=== PATIENT | female | born 1935 | race Caucasian/White ===

== ENCOUNTER 2016-09-07 07:58 | Inpatient (IN) | payer OTHER ==
[~2016-09-07] VITALS: Ht 154.9 cm; Wt 60.0 kg
[~2016-09-07 07:58] MED LIST: ACCUPRIL5 MG PO; MULTIPLE VITAMIN PO; OMEPRAZOLE20 M1 PO; PROBIOTI1 PO; SIMVASTATIN40 MG PO; SYNTHROID50 MCG PO
--- NOTE | 2016-09-07 10:25 | DIAGNOSTIC IMAGING REPORT ---
PROCEDURE: ABDOMEN/PELVIS WITH CONTRAST CLINICAL INDICATION: ABDOMINAL PAIN, BLOODY DIARRHEA. TECHNIQUE: 100 ml of Isovue 300 were injected intravenously and axial images were obtained of the abdomen and pelvis with sagittal and coronal reformations. COMPARISON: 02/25/2015 FINDINGS: ABDOMEN: Coarse interstitial markings throughout the lung bases. Mild bibasilar atelectasis. Moderate aortic and mitral valvular calcification. Mild left chamber cardiac enlargement. Circumferential distal esophageal thickening and edema of the GE junction. The liver, gallbladder, adrenal glands, kidneys (14 mm superior pole left exophytic cyst). pancreas and spleen are normal. The abdominal aorta is normal in its course and caliber. There is heavy calcific atherosclerosis, however the KIM does appear perfused. There are no suspicious calcifications, retroperitoneal adenopathy or masses. The stomach, upper bowel loops, and mesentery are normal. Intact anterior abdominal wall. No free fluid or inflammation. Moderate sigmoid diverticulosis without acute inflammation. Mild descending diverticular disease. The colon beginning at the distal transverse through the proximal descending demonstrates circumferential mural wall thickening, edema, and mild mucosal hyperemia. Trace pericolonic inflammation around the distal transverse colon in the left upper quadrant/left mid abdomen. PELVIS: The appendix was not seen. The pelvic small bowel loops are normal. The uterus and ovaries are surgically absent. The urinary bladder, and pelvic vessels are normal. No adenopathy, free fluid, or pelvic mass. Intact osseous structures. IMPRESSION: 1. Changes of acute colitis involving the distal transverse colon, splenic flexure, and into the proximal descending colon. Findings are likely infectious/inflammatory although ischemic colitis, given location and presence of heavy atherosclerosis, is not excluded. 2. Mild to moderate descending and sigmoid diverticulosis without acute diverticulitis. 3. Circumferential distal esophageal thickening and wall edema, probably esophagitis, less likely neoplasm given smooth appearance. 4. Status post hysterectomy and oophorectomy. 5. Findings discussed with Dr. Ríos in the emergency room. All CT scans at this facility use dose modulation, iterative reconstruction, and/or weight-based dosing when appropriate to reduce radiation dose to as low as reasonably achievable.
--- NOTE | 2016-09-07 10:30 | ED ORDER SUMMARY ---
..... Patient: MARIE CERNA OrderSheet [facility] VisitID: [id number] [place] [address] 81y, F Registration Date/Time: 09/07/2016 ORDER SHEET Weight: 58.9 kg (stated) Allergies: No Known Drug Allergy GENERAL ORDERS: CT Abd/Pel w Cont (No) (N/A) Urgent (08:09/07/2016 Martha Manuel) (Ack 8:24 Shweta) (9:19 LWhalen R.N.) CBC w Diff Urgent (:09/07/2016 Martha Manuel) (Ack 8:23 Shweta) (8:36 LWhalen R.N.) CMP Urgent (:09/07/2016 Martha Manuel) (Ack 8:23 Shweta) (8:36 LWhalen R.N.) UA-Culture if indicated Urgent (:09/07/2016 Martha Manuel) (Ack 8:24 Shweta) (9:19 LWhalen R.N.) PT with INR Urgent (:09/07/2016 Martha Manuel) (Ack 8:24 Shweta) (8:36 LWhalen R.N.) PTT Urgent (:09/07/2016 Martha Manuel) (Ack 8:24 Shweta) (8:36 LWhalen R.N.) Type & Screen Urgent (:09/07/2016 Martha Manuel) (Ack 8:24 Shweta) (8:36 LWhalen R.N.) Pulse oximeter (:09/07/2016 Martha Manuel) (Ack 8:23 Shweta) (8:36 LWhalen R.N.) Blood Culture (No) (N/A) Urgent (:09/07/2016 Martha Manuel) (Ack 10:34 Shweta) (10:57 LWhalen R.N.) MEDICATION ORDERS: IV FLUIDS: IV NS : initial bolus 1000 mL (1000 mL/hr), then none - for X1 (NOW) (08:09/07/2016 Martha Manuel) (9:17 LWjosé miguel R.N.) Zofran IV 4 mg (NOW) (08:09/07/2016 Martha Manuel) (9:18 LWjosé miguel R.N.) Morphine IV 4 mg (HIGH ALERT MEDICATION, NOW) (08:09/07/2016 Martha Manuel) (9:19 LWjosé miguel R.N.) Flagyl IV 500 mg/100mL (NOW) (10:18 09/07/2016 Martha Manuel) (10:57 LWhalannie R.N.) Levaquin IV 750 mg/150 mL (NOW) (10:19 09/07/2016 Martha Manuel) (10:57 LWjosé miguel R.N.) ORDER SHEET NOTES: [Electronically signed by Zeenat Knapp R.N. (19:32 09/07/2016)] [Electronically signed by Marvel Ríos Dr. (03:51 09/12/2016)] [Electronically locked/signed by Zeenat Knapp R.N. (19:32 09/07/2016)]
--- NOTE | 2016-09-07 10:30 | ED ORDER SUMMARY ---
..... Patient: MARIE CERNA OrderSheet [facility] VisitID: [id number] [place] [address] 81y, F Registration Date/Time: 09/07/2016 ORDER SHEET Weight: 58.9 kg (stated) Allergies: No Known Drug Allergy GENERAL ORDERS: CT Abd/Pel w Cont (No) (N/A) Urgent (08:09/07/2016 Martha Manuel) (Ack 8:24 Shweta) (9:19 LWhalen R.N.) CBC w Diff Urgent (:09/07/2016 Martha Manuel) (Ack 8:23 Shweta) (8:36 LWhalen R.N.) CMP Urgent (:09/07/2016 Martha Manuel) (Ack 8:23 Shweta) (8:36 LWhalen R.N.) UA-Culture if indicated Urgent (:09/07/2016 Martha Manuel) (Ack 8:24 Shweta) (9:19 LWhalen R.N.) PT with INR Urgent (:09/07/2016 Martha Manuel) (Ack 8:24 Shweta) (8:36 LWhalen R.N.) PTT Urgent (:09/07/2016 Martha Manuel) (Ack 8:24 Shweta) (8:36 LWhalen R.N.) Type & Screen Urgent (:09/07/2016 Martha Manuel) (Ack 8:24 Shweta) (8:36 LWhalen R.N.) Pulse oximeter (:09/07/2016 Martha Manuel) (Ack 8:23 Shweta) (8:36 LWhalen R.N.) Blood Culture (No) (N/A) Urgent (:09/07/2016 Martha Manuel) (Ack 10:34 Shweta) (10:57 LWhalen R.N.) MEDICATION ORDERS: IV FLUIDS: IV NS : initial bolus 1000 mL (1000 mL/hr), then none - for X1 (NOW) (08:09/07/2016 Martha Manuel) (9:17 LWjosé miguel R.N.) Zofran IV 4 mg (NOW) (08:09/07/2016 Martha Manuel) (9:18 LWjosé miguel R.N.) Morphine IV 4 mg (HIGH ALERT MEDICATION, NOW) (08:09/07/2016 Martha Manuel) (9:19 LWjosé miguel R.N.) Flagyl IV 500 mg/100mL (NOW) (10:18 09/07/2016 Martha Manuel) (10:57 LWhalannie R.N.) Levaquin IV 750 mg/150 mL (NOW) (10:19 09/07/2016 Martha Manuel) (10:57 LWjosé miguel R.N.) ORDER SHEET NOTES: [Electronically signed by Zeenat Knapp R.N. (19:32 09/07/2016)] [Electronically signed by Marvel Ríos Dr. (03:51 09/12/2016)] [Electronically locked/signed by Zeenat Knapp R.N. (19:32 09/07/2016)]
--- NOTE | 2016-09-07 10:30 | ED NURSING NOTES ---
Clinical Report - Nurses Merged With [facility] [address] [place] [address] 09/07/2016 7:59 [id number] Triage time 08:Sep 07 2016. Acuity: LEVEL 3. Chief Complaint: ABDOMINAL PAIN and DIARRHEA. JANEEN COMA SCORE: Janeen Coma Scale: 15- eyes open spontaneously (4); best verbal response- oriented x 4 (5); best motor response- obeys commands (6). --08:20 Zeenat Knapp R.N. 08:08 09/07/16. BP: 133/51. HR: 86. RR: 18. O2 saturation: 99%. Temp: 98.6 F. Pain level now 5/10. --08:20 Zeenat Knapp R.N. Weight: 58.9 kg stated. Height/Length: 61 inches Per Patient. BMI: 24.5. --08:19 Zeenat Knapp R.N. Medications Levothyroxine Sodium Oral (Tablet 50 mcg), 2x a day. Multivitamins Oral 1 pill, daily. Quinapril HCl Oral 5 mg, 2x a day. Simvastatin Oral 40 mg, daily. --08:12 Zeenat Knapp R.N. Aspirin Low Strength Oral. --08:12 Zeenat Knapp R.N. AmLODIPine Besylate Oral. --08:13 Zeenat Knapp R.N. B 12. --08:13 Zeenat Knapp R.N. Allergies No Known Drug Allergy. --08:12 Zeenat Knapp R.N. History Arrived by private vehicle. Historian: patient. This started last night. ( Was working last night had to go home for abdominal pain and had diarrhea. When she woke up this am has had clots and some blood. Was hospitalized before for a GI bleed.). She has had nausea, diarrhea and abdominal pain. PAST MEDICAL HX: Immunizations: up-to-date. SOCIAL HX: No infectious disease exposure. SELF HARM ASSESSMENT: A self harm assessment was performed. The patient answered "no" to the question "Have you recently felt down, depressed, or hopeless?" and "Do you have thoughts of harming or killing yourself?". FALL RISK ASSESSMENT: Fall risk assessment completed. No fall risk identified. NUTRITIONAL RISK ASSESSMENT: The nutritional risk assessment revealed no deficiencies. FUNCTIONAL ASSESSMENT: Functional assessment: no impairments noted. LEARNING NEEDS ASSESSMENT: The learning needs assessment revealed no barriers. ABUSE ASSESSMENT: Abuse assessment: (yes) The patient was asked "Do you feel safe in your home?". SKIN INTEGRITY ASSESSMENT: Skin integrity risk assessment completed. No skin integrity risk identified. --08:20 Zeenat Knapp R.N. PROBLEMS: Headache. Laceration. Hypertension. Esophagitis. Thyroid Disease. Hyperlipidemia. Bacterial Enteritis. Diverticulitis. GI Bleeding. Bronchitis. Heart Disease. Immunizations. --08:13 Zeenat Knapp R.N. ADDITIONAL SURGERIES: Hysterectomy. Oophorectomy. Shoulder Surgery. --08:13 Zeenat Knapp R.N. Interventions ID band on patient. --08:20 Zeenat Knapp R.N. PHYSICAL ASSESSMENT Ambulatory to room. GENERAL / NEURO / PSYCH: Alert. Oriented X 4. Appears anxious. HEENT: Mucous membranes are pink. RESPIRATORY: Respirations not labored. Breath sounds within normal limits. CVS: Normal sinus rhythm noted. Capillary refill less than 2 seconds. GI / : The patient has had nausea and diarrhea. Abdomen soft. Blood present in the stool. SKIN: Skin is warm and dry. --08:21 Zeenat Knapp R.N. NURSING PROGRESS NOTES The initial plan of care for this patient includes an assessment with efforts to address patient positioning, appropriate ambient lighting and comfortable environmental temperature. Pulse oximeter and NIBP monitor placed on patient. Reassurance given. Call light placed in reach. Side rails up x 1. Bed placed in lowest position. Brakes of bed on. --08:21 Zeenat Knapp R.N. 08:15 09/07/2016 Site #1 started via IV in the left antecubital space with an 20g angiocath; one attempt. Blood drawn: rainbow set. Labeled in the presence of the patient and sent to the lab. Saline lock flushed with 10 mL saline. --08:25 Kit Olivera R.N. 08:52 09/07/2016 Started bag #1 1000 mL IV Fluids IV NS (Saline); at 1000 mL/hr over 1 hour(s) via site #1 via dial-a-flow. Allergies verified and confirmed 5 rights. IV patency established. IV site checked: no pain, redness, or swelling. IV flushed thoroughly pre- and post-medication administration. --09:17 Zeenat Knapp R.N. 09:18 09/07/2016 Zofran (Ondansetron HCl) IVP 4 mg given over 2 minute(s) via site #1. Allergies verified and confirmed 5 rights. IV patency established. IV site checked: no pain, redness, or swelling. IV flushed thoroughly pre- and post-medication administration. --09:18 Zeenat Knapp R.N. 09:19 09/07/2016 Morphine IVP 4 mg given over 2 minute(s) via site #1. Allergies verified, confirmed 5 rights and sedative warning given to the patient. IV patency established. IV site checked: no pain, redness, or swelling. IV flushed thoroughly pre- and post-medication administration. --09:19 Zeenat Knapp R.N. ( H&P form given to patient to fill out.). --10:46 Erika Cruz 10:57 09/07/2016 Started 500 mg of Flagyl (MetroNIDAZOLE in NaCl) IVPB in bag #1 100 mL; at 100 mL/hr over 1 hour(s) via site #1 via IV pump. Allergies verified and confirmed 5 rights. IV patency established. IV site checked: no pain, redness, or swelling. IV flushed thoroughly pre- and post-medication administration. --10:57 Zeenat Knapp R.N. 10:57 09/07/2016 Started 750 mg of Levaquin (Levofloxacin) IVPB in bag #1 150 mL; at 150 mL/hr over 1 hour(s) via site #1 via IV pump. Allergies verified and confirmed 5 rights. IV patency established. IV site checked: no pain, redness, or swelling. IV flushed thoroughly pre- and post-medication administration. --10:57 Zeenat Knapp R.N. 09:30 09/07/16. BP: 120/44. HR: 72. RR: 18. O2 saturation: 97%. 09:00 09/07/16. BP: 118/43. HR: 70. RR: 20. O2 saturation: 99%. 08:45 09/07/16. BP: 123/47. HR: 72. RR: 19. O2 saturation: 98%. 08:30 09/07/16. BP: 60/29. HR: 70. RR: 14. O2 saturation: 96%. 08:15 09/07/16. BP: 56/29. HR: 72. RR: 18. O2 saturation: 96%. --11:21 Zeenat Knapp R.N. ( Patient's right arm BP decreased patient states that she has had a blockage and not to use that are. Changed BP cuff site and patient's bp wnl.). --11:24 Zeenat Knapp R.N. DISPOSITION / DISCHARGE 11:23 09/07/16. BP: 118/44. HR: 73. RR: 19. O2 saturation: 98%. Temp: 98.6 F. --11:23 Zeenat Knapp R.N. Admitted to the Critical Care Unit (305). --11:24 Zeenat Knapp R.N. ( Report given to Parisa CASTRO). --11:24 Zeenat Knapp R.N. Departure time: 11:42 Sep 07 2016. --11:42 Zeenat Knapp R.N. Locked/Released at 09/07/2016 19:32 by Zeenat Knapp R.N.
--- NOTE | 2016-09-07 10:30 | ED CLINICAL REPORT ---
Clinical Report - Physicians/Mid Levels [facility] [address] [place] [address] 09/07/2016 7:59 Patient: MARIE CERNA Time Seen: 0815. Arrived- By private vehicle. Historian- patient. HISTORY OF PRESENT ILLNESS Chief Complaint: RECTAL BLEEDING. This started yesterday, has been moderate and is still present. It was abrupt in onset and has been intermittent but is not gone now. The patient has had dark stools and rectal bleeding. She has had moderate abdominal pain. The pain is described as located in the central area of the abdomen and associated with nausea. No vomiting. (hx of diverticulosis.). No recent travel. No known contact with a sick individual. Similar symptoms previously: Once. Recent medical care: Not recently seen/assessed. REVIEW OF SYSTEMS No skin rash. All systems otherwise negative, except as recorded above. PAST HISTORY See nurses notes. Medications: B 12. AmLODIPine Besylate Oral. Aspirin Low Strength Oral. Levothyroxine Sodium Oral (Tablet 50 mcg), 2x a day. Multivitamins Oral 1 pill, daily. Quinapril HCl Oral 5 mg, 2x a day. Simvastatin Oral 40 mg, daily. Allergies: No Known Drug Allergy. SOCIAL HISTORY Never smoker. Alcohol use. No drug use. No recent travel. Is a local resident. ADDITIONAL NOTES The nursing notes have been reviewed. PHYSICAL EXAM Vital Signs: 09/07/2016 08:08 BP: 133/51. HR: 86. RR: 18. O2 saturation: 99%. Temp: 98.6 F. Blood pressure normal. Oxygen saturation normal. Appearance: Alert. Oriented X3. No acute distress. Eyes: Pupils equal, round and reactive to light. Eyes normal inspection. ENT: Ears normal. Nose normal. Pharynx normal. Neck: Normal inspection. Neck supple. CVS: Normal heart rate and rhythm. Heart sounds normal. Pulses normal. Respiratory: No respiratory distress. Breath sounds normal. Abdomen: Soft and nontender. Bowel sounds normal. No mass. Rectal: Strongly heme-positive stool; blood present in the stool; stools are dark and maroon colored; hemoccult quality project manager check passed. (POC test reference range: negative). Skin: Skin warm and dry. Normal skin color. No rash. Normal skin turgor. Extremities: Extremities exhibit normal ROM. No lower extremity edema. LABS, X-RAYS, AND EKG CT Abdomen - Pelvis: PROCEDURE: ABDOMEN/PELVIS WITH CONTRAST CLINICAL INDICATION: ABDOMINAL PAIN, BLOODY DIARRHEA. TECHNIQUE: 100 ml of Isovue 300 were injected intravenously and axial images were obtained of the abdomen and pelvis with sagittal and coronal reformations. COMPARISON: 02/25/2015 FINDINGS: ABDOMEN: Coarse interstitial markings throughout the lung bases. Mild bibasilar atelectasis. Moderate aortic and mitral valvular calcification. Mild left chamber cardiac enlargement. Circumferential distal esophageal thickening and edema of the GE junction. The liver, gallbladder, adrenal glands, kidneys (14 mm superior pole left exophytic cyst). pancreas and spleen are normal. The abdominal aorta is normal in its course and caliber. There is heavy calcific atherosclerosis, however the KIM does appear perfused. There are no suspicious calcifications, retroperitoneal adenopathy or masses. The stomach, upper bowel loops, and mesentery are normal. Intact anterior abdominal wall. No free fluid or inflammation. Moderate sigmoid diverticulosis without acute inflammation. Mild descending diverticular disease. The colon beginning at the distal transverse through the proximal descending demonstrates circumferential mural wall thickening, edema, and mild mucosal hyperemia. Trace pericolonic inflammation around the distal transverse colon in the left upper quadrant/left mid abdomen. PELVIS: The appendix was not seen. The pelvic small bowel loops are normal. The uterus and ovaries are surgically absent. The urinary bladder, and pelvic vessels are normal. No adenopathy, free fluid, or pelvic mass. Intact osseous structures. IMPRESSION: 1. Changes of acute colitis involving the distal transverse colon, splenic flexure, and into the proximal descending colon. Findings are likely infectious/inflammatory although ischemic colitis, given location and presence of heavy atherosclerosis, is not excluded. 2. Mild to moderate descending and sigmoid diverticulosis without acute diverticulitis. 3. Circumferential distal esophageal thickening and wall edema, probably esophagitis, less likely neoplasm given smooth appearance. 4. Status post hysterectomy and oophorectomy. Abdomen - pelvic CT performed with IV contrast. The study was independently viewed by me and interpreted by the radiologist. The study was discussed with the radiologist (via pacs and phone). Laboratory Tests: CBC w Diff: (RAHUL: 09/07/2016 08:18) ( [facility] 09/07[facility] 08:34) Final results Test Result Flag Units (Reference) WHITE BLOOD COUNT 20.3 H K/uL (4.5-11.5) RED BLOOD COUNT 3.66 L M/uL (4.00-5.20) HEMOGLOBIN 11.1 L gm/dL (12.0-16.0) HEMATOCRIT 33.1 L % (36.0-46.0) MEAN CELL VOLUME 90 fL (80-100) MEAN CORPUSCULAR HGB 30 pg (26-34) MEAN CORPUSCULAR HGB CONC 34 g/dL (31-37) RED CELL DISTRIBUTION WIDTH 15.0 H % (11.6-14.8) PLATELET COUNT 194 K/uL (150-400) NEUTROPHIL % 90.8 H % (50-75) LYMPH % 4.4 L % (25-40) MONO % 4.4 % (3-14) EOSINOPHIL % 0.3 % (0-4) BASOPHIL % 0.1 % (0-2) PT with INR: (RAHUL: 09/07/2016 08:18) ( [facility] 09/07/2016 08:39) Final results Test Result Flag Units (Reference) INR 1.1 (0.8-1.2) Low Intensity Therapy: INR 1.5-2.0 PT range 18.5-23.1Mod.Intensity Therapy: INR 2.0-3.0 PT range 23.1-31.5High Intensity Therapy: INR 2.5-3.5 PT range 27.4-35.5High Intensity Therapy 2: INR 3.0-4.0 PT range 31.5-39.3 APTT 33 SECONDS (24-34) CMP: (RAHUL: 09/07/2016 08:18) ( [facility] 09/07/2016 08:57) Final results Test Result Flag Units (Reference) GLUCOSE 143 H mg/dL (70-110) BUN 18 mg/dL (7-18) CREATININE 0.9 mg/dL (0.6-1.3) Estimated GFR >60 mL/min Estimated GFR- >60 mL/min Note: Persistent reduction over 3 months in eGFR<60 mL/min/1.73 m2 defines CKD. Patients with eGFR values>=60 mL/min/1.73 m2 may also have CKD if evidence ofpersistent proteinuria. Additional information may be foundat www.kidney.org. SODIUM 142 mmol/L (136-145) POTASSIUM 4.4 mmol/L (3.5-5.1) CHLORIDE 107 mmol/L (98-107) CARBON DIOXIDE 21 mmol/L (21-32) CALCIUM 9.6 mg/dL (8.5-10.1) TOTAL PROTEIN 7.5 g/dL (6.4-8.2) ALBUMIN 4.0 g/dL (3.3-5.0) BILIRUBIN, TOTAL 0.4 mg/dL (0.0-1.0) ALKALINE PHOSPHATASE 61 U/L (46-116) AST (SGOT) 16 U/L (15-37) ALT (SGPT) 21 U/L (12-78) Type & Screen: (RAHUL: 09/07/2016 08:18) ( MsgRcvd 09/07/2016 09:23) Final results Test Result Flag Units (Reference) PATIENT BLOOD TYPE O Negative ANTIBODY SCREEN NEGATIVE . PROGRESS AND PROCEDURES Course of Care: the patient is a pleasant 81-year-old female presenting for evaluation of abdominal pain andrectal bleeding. At this time differential diagnosis includes C. difficile other infectious colitis, diverticulosis, hemorrhoids, or dysentery. Laboratory studies will be ordered. Patient appears nontoxic. Pain medications have also been ordered. Patient is agreeable to treatment plan. All questions have been answered. The patient's workup was remarkable for the findings above. Patient's white blood cell count is noted to be20.3. Patient is also noted to be 81 years old and with the CT scan findings above, would feel the patient is a poor outpatient candidate. Patient would be athigh risk for acute decompensation if patient were to be Sent home. Antibiotics have been provided here in the emergency department. I discussion with the patient in regards to her workup here in the emergency department including diagnosis and plan of care. Patient is agreeable to the treatment and plan. Discussed the case with the hospitalist. Patient will be admitted. No further recommendations made. Patient to be admitted to the observation unit. Do not fill patient is admitted to the ICU. stable for floor placement. Patient without signs of sepsis. Prior to patient's departure from the emergency department she was noted to be resting in bed and in no acute distress. Patient's Condition improved. Patient still will need to be admitted for further monitoring and management of her abdominal pain and colitis. Disposition: Observation in Acute Care. CLINICAL IMPRESSION colitis, acute leukocytosis, acute abdominal pain, acute gI bleed, acute. (Electronically signed by Marvel Ríos Dr. 09/12/2016 3:51)
[2016-09-07 12:07] VITALS: BP 123/44
[2016-09-07 14:26] VITALS: BP 117/42
--- NOTE | 2016-09-07 18:03 | History & Physical Report ---
History Chief Complaint abdominal pain and maroon stools History of Present Illness Patient is an 81 year old female with a pmh of hypertension and hypothryoidism that is presenting with a one day history of abdominal cramps and melena. Patient had been in her usual state of health when she developed lower abdominal cramps. Patient didnt think much of it, then she started to develop diarrhea and she noticed that eventually over time the diarrhea had become marroon in color. Patient had approximately 5 episodes, all associated with severe cramping. Patient became concerned that this was somehting more significant and decided to come to the hospital. Patient History 1. Abdominal pain 2. Leukocytosis, unspecified 3. Colitis 4. Diverticula of colon 5. Hypertension Social History Patient does not drink or smoke. She is an ex smoker with a 20 pack year history she quit over 20 years ago. Patient using medical marijuana salve on her joints. She currently lives with her daughter and manages all her ADLs indepentely. Family History MOTHER, , Age 82; Cause: Cardiac abnormality. Heart Disease FATHER, , Age 62; Cause: Liver disease. FHx: liver disease Heart Disease BROTHER, ; Cause: Leukemia. FHx: leukemia SISTER, ; Cause: Cancer of unknown origin. FHx: cancer Medications and Allergies Medications Home Medications Amlodopine 10 mg daily Aspirin 325 mg daily levothyroxine 50 mcg daily Quinapril 20 mg daily Simvastatin 40 mg daily Current Medications Sig/Vero Start time Last Medication Dose Route Stop Time Status Admin Levofloxacin/Dextrose 150 ML Q48H 09/09 0900 AC IV Metronidazole 500 MG Q8H 09/07 1800 AC 09/07 PO 1758 Lactobacillus 1 TAB TID 09/07 1530 AC 09/07 PO 1701 Ondansetron HCl 4 MG Q6H PRN 09/07 1400 AC IV Pantoprazole Sodium 40 MG DAILY@0600 09/07 1400 AC 09/07 IV 1418 Sodium Chloride 1,000 ML ASDIRECTED 09/07 1400 AC IV Morphine Sulfate 1 MG Q6H PRN 09/07 1315 AC 09/07 IV 1644 Allergies Coded Allergies: TAPE - PLASTIC (Severe, Rash 09/07/16) Paper tape is okay Review of Systems Constitutional Weakness, Malaise. Denies: Fever, Chills, Sweats, Other. Eyes Denies: Pain, Vision Change, Conjunctival Inflammation, Eyelid Inflammation, Redness, Other. ENT Denies: Ear Pain, Ear Discharge, Nose Pain, Nasal Discharge, Nasal Congestion, Mouth Pain, Mouth Swelling, Throat Pain, Throat Swelling, Other. Respiratory Denies: Cough, Dry, SOB w/exertion, Wheezing, Hemoptysis, Pleuritic Pain, Sputum , Other. Cardiovascular Denies: Chest Pain, Palpitations, Orthopnea, PND, Edema, Light-headedness, Other. Gastrointestinal Abdominal Pain, Diarrhea, Melena. Denies: Nausea, Vomiting, Constipation, Hematochezia, Other. Genitourinary Denies: Dysuria, Frequency, Incontinence, Hematuria, Retention, Other. Musculoskeletal Denies: Neck Pain, Shoulder Pain, Arm Pain, Back Pain, Hand Pain, Leg Pain, Foot Pain, Other. Skin Denies: Rash, Lesions, Jaundice, Bruising, Other. Neurological Denies: Weakness, Numbness, Incoordination, Change in speech, Confusion, Seizures, Other. Physical Exam Vital Signs / I&Os Vital Signs Date Time Temp Pulse Resp B/P Pulse O2 O2 Flow FiO2 Ox Delivery Rate 09/07 1833 99.0 81 16 141/49 96 09/07 1426 98.2 72 16 117/42 100 09/07 1207 99.3 72 21 123/44 98 Room Air General Appearance Alert, Oriented X3, No acute distress HEENT Atraumatic Lungs Clear to auscultation, Normal air movement Neck No JVD, No masses Cardiovascular Regular rate and rhythm, Normal S1 and S2, No murmurs, gallops, rubs Abdomen Soft, No tenderness Extremities No edema, Normal pulses, No tenderness, Strength = upper ext's, Strength = lower ext's Skin No Breakdown, No Significant Lesions Neurological Normal gait, Normal tone, Sensation intact, Cranial nerves intact, No lateralizing signs Psych/Mental Status Mood normal LAB Results Laboratory Tests 09/07 09/07 0818 1045 Chemistry Plasma Sodium (136 - 145 mmol/L) 142 Plasma Potassium (3.5 - 5.1 mmol/L) 4.4 Plasma Chloride (98 - 107 mmol/L) 107 CO2 (Enzymatic) (21 - 32 mmol/L) 21 BUN (7 - 18 mg/dL) 18 Creatinine (0.6 - 1.3 mg/dL) 0.9 Est GFR ( Amer) (mL/min) >60 Est GFR (Non-Af Amer) (mL/min) >60 Glucose (70 - 110 mg/dL) 143 Plasma Calcium (8.5 - 10.1 mg/dL) 9.6 Total Bilirubin (0.0 - 1.0 mg/dL) 0.4 AST (15 - 37 U/L) 16 ALT (12 - 78 U/L) 21 Alkaline Phosphatase (46 - 116 U/L) 61 Total Protein (6.4 - 8.2 g/dL) 7.5 Albumin (3.3 - 5.0 g/dL) 4.0 Coagulation INR (0.8 - 1.2) 1.1 APTT (24 - 34 SECONDS) 33 Hematology WBC (4.5 - 11.5 K/uL) 20.3 RBC (4.00 - 5.20 M/uL) 3.66 Hgb (12.0 - 16.0 gm/dL) 11.1 Hct (36.0 - 46.0 %) 33.1 MCV (80 - 100 fL) 90 MCH (26 - 34 pg) 30 RDW (11.6 - 14.8 %) 15.0 Neut % (Auto) (50 - 75 %) 90.8 Lymph % (Auto) (25 - 40 %) 4.4 [place] % (Auto) (3 - 14 %) 4.4 Eos % (Auto) (0 - 4 %) 0.3 Baso % (Auto) (0 - 2 %) 0.1 Plt Count, EDTA (150 - 400 K/uL) 194 PUBS MCHC (31 - 37 g/dL) 34 Urines Urine Color YELLOW Urine Appearance CLOUDY Urine pH (5.0 - 8.0) 5.5 Ur Specific [place] (1.010 - 1.030) <= 1.005 Urine Protein (NEGATIVE) NEGATIVE Urine Ketones (NEGATIVE) NEGATIVE Urine Blood (NEGATIVE) 2+ Urine Nitrite (NEGATIVE) POSITIVE Urine Bilirubin (NEGATIVE) NEGATIVE Urine Urobilinogen (0.2 - 1.0 EU/dL) 0.2 Ur Leukocyte Esterase (NEGATIVE) POSITIVE Urine RBC (0 - 1 rbc/hpf) 5-10 Urine WBC (0 - 1 wbc/hpf) 75-100 Ur Epithelial Cells (0 - 5 EPI/hpf) 0-1 Urine Bacteria (NONE SEEN) MODERATE (2+ TO 3+) Urine Glucose (NEGATIVE) NEGATIVE Urine Comment CULTURE INDICATED Microbiology Date/Time Procedure - Status Source Growth 09/07 1045 Urine Culture - RECD URINE CC 09/07 1035 Blood Culture - RECD BLOOD 09/07 1024 Blood Culture - CAN BLOOD Cancelled: ONLY ONE SET COLLECTED PER RN JOSR ER.ANTIBIOTICS ALREADY 09/07 UNK MRSA Screen - COLB NASAL Assessment and Plan Problem List 1. Abdominal pain Plan - radiolgical evidence of colitis - will treat with levaquin and flagyl - will monitor for improvement - will trend cbc 2. Leukocytosis, unspecified Plan - secondary to colitis - will continue to trend cbc daily 3. Hypertension Plan - will continue with home medication - will continue to trend blood pressure 4. Hypothyroid Plan - will continue with bid synthroid 50 mcg
[2016-09-07 18:33] VITALS: BP 141/49
[2016-09-07 22:49] VITALS: BP 130/42
[2016-09-08 02:07] VITALS: BP 129/39
[2016-09-08 07:24] VITALS: BP 127/49
[2016-09-08 10:42] VITALS: BP 122/45
[2016-09-08 14:38] VITALS: BP 116/42
[2016-09-08 18:12] VITALS: BP 113/42
--- NOTE | 2016-09-08 18:55 | Progress Note ---
Subjective General Pt seen and examined. Patient has improved abdominal pain and no episodes of diarrhea or melena. Patient able to tolerate a full diet. Constitutional Denies: Fever, Chills, Sweats, Weakness, Malaise, Other. Eyes Denies: Pain, Vision Change, Conjunctival Inflammation, Eyelid Inflammation, Redness, Other. ENT Denies: Ear Pain, Ear Discharge, Nose Pain, Nasal Discharge, Nasal Congestion, Mouth Pain, Mouth Swelling, Throat Pain, Throat Swelling, Other. Respiratory Denies: Cough, Dry, SOB w/exertion, Wheezing, Hemoptysis, Pleuritic Pain, Sputum , Other. Cardiovascular Denies: Chest Pain, Palpitations, Orthopnea, PND, Edema, Light-headedness, Other. Gastrointestinal Abdominal Pain. Denies: Nausea, Vomiting, Diarrhea, Constipation, Melena, Hematochezia, Other. Genitourinary Denies: Dysuria, Frequency, Incontinence, Hematuria, Retention, Other. Musculoskeletal Denies: Neck Pain, Shoulder Pain, Arm Pain, Back Pain, Hand Pain, Leg Pain, Foot Pain, Other. Skin Denies: Rash, Lesions, Jaundice, Bruising, Other. Neurological Denies: Weakness, Numbness, Incoordination, Change in speech, Confusion, Seizures, Other. Physical Exam Vital Signs / I&Os Vital Signs Date Time Temp Pulse Resp B/P Pulse O2 O2 Flow FiO2 Ox Delivery Rate 09/08 1812 98.8 73 20 113/42 100 Room Air 09/08 1438 98.1 71 20 116/42 100 Room Air 09/08 1042 98.8 72 20 122/45 99 Room Air 09/08 0724 99.0 72 19 127/49 96 Room Air 09/08 0207 99.3 76 16 129/39 100 Room Air 09/07 2355 Room Air 09/07 2249 99.3 81 16 130/42 100 Room Air I&O 09/07 0800 / 1600 09/08 0000 Intake Total 1000 Output Total 300 650 Balance 700 -650 General Appearance Alert, Oriented X3, No acute distress HEENT Atraumatic, PERRLA, Moist mucous membranes Lungs Clear to auscultation, Normal air movement Cardiovascular Regular rate and rhythm, Normal S1 and S2, No murmurs, gallops, rubs Abdomen Soft, No tenderness Extremities No edema, Normal pulses, No tenderness, Strength = upper ext's, Strength = lower ext's Skin No Breakdown, No Significant Lesions Neurological Normal speech, Sensation intact, Cranial nerves intact, No lateralizing signs Psych/Mental Status Mood normal LAB Results Laboratory Tests 09/08 520 Chemistry Plasma Sodium (136 - 145 mmol/L) 140 Plasma Potassium (3.5 - 5.1 mmol/L) 3.8 Plasma Chloride (98 - 107 mmol/L) 108 CO2 (Enzymatic) (21 - 32 mmol/L) 20 BUN (7 - 18 mg/dL) 8 Creatinine (0.6 - 1.3 mg/dL) 0.8 Est GFR ( Amer) (mL/min) >60 Est GFR (Non-Af Amer) (mL/min) >60 Glucose (70 - 110 mg/dL) 92 Plasma Calcium (8.5 - 10.1 mg/dL) 8.7 Plasma Magnesium (1.8 - 2.4 mg/dL) 1.7 Total Bilirubin (0.0 - 1.0 mg/dL) 0.4 AST (15 - 37 U/L) 17 ALT (12 - 78 U/L) 12 Alkaline Phosphatase (46 - 116 U/L) 63 Total Protein (6.4 - 8.2 g/dL) 6.3 Albumin (3.3 - 5.0 g/dL) 3.0 Hematology WBC (4.5 - 11.5 K/uL) 11.8 RBC (4.00 - 5.20 M/uL) 3.12 Hgb (12.0 - 16.0 gm/dL) 9.5 Hct (36.0 - 46.0 %) 28.4 MCV (80 - 100 fL) 91 MCH (26 - 34 pg) 31 RDW (11.6 - 14.8 %) 14.6 Neut % (Auto) (50 - 75 %) 82.3 Lymph % (Auto) (25 - 40 %) 9.0 [place] % (Auto) (3 - 14 %) 7.2 Eos % (Auto) (0 - 4 %) 1.2 Baso % (Auto) (0 - 2 %) 0.3 Plt Count, EDTA (150 - 400 K/uL) 142 PUBS MCHC (31 - 37 g/dL) 34 Assessment and Plan Problem List 1. Colitis Plan - improved significantly - will continue with antibiotics of levaquin and flagyl - will continue with probiotics 2. BRBPR (bright red blood per rectum) Plan - resolved - will continue to trend hemoglobin 3. Hypertension Plan c/w home medications - good bp control 4. Hypothyroid Plan - will c/w home dose of synthroid
--- NOTE | 2016-09-08 19:11 | Progress Note ---
Subjective General Patient is a 81 year old and female presenting with colitis. For other history of present illness please refer to my H&P. A discussion was undertaken regarding the patients advance directive and decisions. The following advance directives were obtained Advance directives 1. Living will- yes 2. POLST- no 3. Code status- No code 4. Durable power of business attorney- yes 5: Donor card- yes The pateint has expressed interes in not pursuing any form of resuscitation at this time. She has opted not to pursue intubatio/mechanical ventilation/CPR/ medical intervention at the time of arrest. The patients wishes were documented in the chart and the orders were place in our electronic medical record.
--- NOTE | 2016-09-08 19:11 | Progress Note ---
Subjective General Patient is a 81 year old and female presenting with colitis. For other history of present illness please refer to my H&P. A discussion was undertaken regarding the patients advance directive and decisions. The following advance directives were obtained Advance directives 1. Living will- yes 2. POLST- no 3. Code status- No code 4. Durable power of humane agent- yes 5: Donor card- yes The pateint has expressed interes in not pursuing any form of resuscitation at this time. She has opted not to pursue intubatio/mechanical ventilation/CPR/ medical intervention at the time of arrest. The patients wishes were documented in the chart and the orders were place in our electronic medical record.
[2016-09-08 22:29] VITALS: BP 126/46
[2016-09-09 02:28] VITALS: BP 133/44
[2016-09-09 07:06] VITALS: BP 124/42
--- NOTE | 2016-09-09 09:51 | Progress Note ---
Subjective General Patient is feeling better and thinks she is well enough to go home. She has had no further diarrhea or blood in her stools. She is passing her urine okay. She is eating okay. Constitutional Denies: Fever, Chills, Sweats, Weakness. Eyes Denies: Vision Change. Respiratory Denies: Cough, SOB w/exertion. Cardiovascular Denies: Chest Pain, Palpitations, Orthopnea, Edema, Light-headedness. Gastrointestinal Abdominal Pain (mild abdominal pain but much b). Denies: Nausea, Vomiting, Diarrhea, Hematochezia. Genitourinary Denies: Dysuria, Frequency, Incontinence. Musculoskeletal Denies: Other (no significant musculoskeletal). Skin Denies: Rash, Lesions. Neurological Denies: Weakness, Incoordination, Change in speech, Confusion. Physical Exam Vital Signs / I&Os Vital Signs Date Time Temp Pulse Resp B/P Pulse O2 O2 Flow FiO2 Ox Delivery Rate 09/09 0706 98.2 71 19 124/42 95 Room Air 09/09 0228 73 20 133/44 100 Room Air 09/08 2229 98.8 75 18 126/46 93 Room Air 09/08 2130 Room Air 09/08 1812 98.8 73 20 113/42 100 Room Air 09/08 1438 98.1 71 20 116/42 100 Room Air 09/08 1042 98.8 72 20 122/45 99 Room Air I&O 09/08 0800 08 1600 09/09 0000 Intake Total 2051 720 779 Output Total 300 850 600 Balance 1751 -130 179 General Appearance Alert, Oriented X3, Cooperative, No acute distress HEENT Normal exam Lungs Clear to auscultation, Normal air movement Cardiovascular Regular rate and rhythm, Normal S1 and S2, No murmurs, gallops, rubs Abdomen Normal bowel sounds, mild diffuse tenderness without guarding or rebound. Extremities No edema, Normal pulses, No tenderness Skin No Rashes, No Breakdown, No Significant Lesions Neurological Normal gait, Normal speech, Normal tone, Sensation intact, No lateralizing signs (patient is walking in room ok.) Psych/Mental Status Mental status normal, Mood normal Assessment and Plan Problem List 1. Colitis Plan Colitis is resolved clinically. Most likely this is a noninfectious type. She is having no further diarrhea no blood in her stools. She may stop the metronidazole and the levofloxacin. 2. Acute UTI (urinary tract infection) Plan Urine culture done on admission shows Escherichia coli greater than 100,000/cc. She will start on cephalexin 500 mg by mouth twice daily for 5 more days. The organism was sensitive to all standard antibiotics. 3. GI bleed Plan The patient is having no further GI bleeding. She will be discharged today. Hematocrit is stable at 26. 4. Hypertension Plan Blood pressure is stable on current medications and she will continue current medications following discharge. 5. Hypothyroid Plan Patient is continuing levothyroxine 50 g daily and will continue this following discharge. E&M Codes Discharge: Inpt >30 min spent/[id number]
[2016-09-09] MEDS ORDERED: CEPHALEXIN500 MG PO (10:01)
--- NOTE | 2016-09-09 10:09 | Provider's Discharge Care Plan ---
Problem, Goal, Plan Problem List 1. Colitis Goals: Improve disease control, Improve function, Improved health/wellness, because of intestinal bleeding is unclear. If bleeding and cramping and diarrhea persist, colonoscopy should be done. Instructions: Follow up as directed, Increase activity level, Take meds as directed, Reduce stress, notify your doctor if diarrhea and cramping and bleeding start again. 2. GI bleed Goals: Improve disease control, Improve function, Improved health/wellness, Increase independence Instructions: Follow up as directed, Reduce stress, stay off aspirin until 05/19. Call usual doctor is blood in stool recurs. 3. Hypertension Goals: Improve disease control, Improve function, Improved health/wellness Instructions: Follow up as directed, Increase activity level, Take meds as directed, continue usual home blood pressure medication regimen (.) 4. Hypothyroid Goals: Improve disease control, Improve function, Improved health/wellness Instructions: Follow up as directed, Take meds as directed, continue levothyroxine 50 g strength 1 daily. 5. Acute UTI (urinary tract infection) Goals: Improve disease control, Improve function, Improved health/wellness Instructions: Follow up as directed, Take meds as directed, drink plenty of liquids. Fill prescription for cephalexin 500 mg capsules and take 1 twice daily until prescription is been used up. Start in the evening 09/09/16.
[2016-09-09] MEDS ORDERED: COATED ASPIRIN325 MG PO (13:20)
--- NOTE | 2016-09-12 03:51 | ED MED RECONCILIATION SUMMARY ---
Patient: MARIE CERNA Medication Reconciliation Report [facility] VisitID: [id number] [address] [place] [address] 81y, F Registration Date/Time: 09/07/2016 Weight: 58.9 kg Height/Length: 61 in. BMI: 24.5 ALLERGIES: No Known Drug Allergy The patient's Home Medications are listed below: THE FOLLOWING MEDICATIONS NEED TO BE RECONCILED: AmLODIPine Besylate Oral Aspirin Low Strength Oral B 12 Levothyroxine Sodium Oral (50 mcg), 2x a day Multivitamins Oral 1 pill, daily Quinapril HCl Oral 5 mg, 2x a day Simvastatin Oral 40 mg, daily The source(s) of the original Home Medication information: Not obtained. The following Medications were given to the patient in the Emergency Department: IV NS IV Fluids bolus 0, then 1000 mL/hr, administered: 09/07/2016 8:52:00 AM Zofran [IVP] IVP 4 mg, administered: 09/07/2016 9:18:00 AM Morphine [IVP] IVP 4 mg, administered: 09/07/2016 9:19:00 AM Flagyl [IVPB] IVPB bolus 0, then 500 mg 100 mL/hr, administered: 09/07/2016 10:57:00 AM Levaquin [IVPB] IVPB bolus 0, then 750 mg 150 mL/hr, administered: 09/07/2016 10:57:00 AM The following Medications were prescribed to the patient: None.
--- NOTE | 2016-09-12 03:51 | ED MAR SUMMARY ---
..... Medication Administration Record [facility] [address] [place] [address] Patient: MARIE CERNA Visit ID: [id number] 81y, F Weight: 58.9 kg Height/Length: 61 in BMI: 24.5 ALLERGIES: No Known Drug Allergy Start 08:52 09/07/2016 Zeenat Knapp R.N. Medication Administered: IV NS (SALINE), Dose: IV Fluids over 1 hour(s), Rate: 1000 mL/hr, Dispensed: 1000 mL bag, Site: #1 left AC. Medication Ordered: IV NS : initial bolus 1000 mL (1000 mL/hr), then none - for X1 (NOW). Given 09:18 09/07/2016 Zeenat Knapp R.N. Medication Administered: ZOFRAN [IVP] (ONDANSETRON HCL), Dose: 4 mg IVP over 2 minute(s), Site: #1 left AC. Medication Ordered: Zofran IV 4 mg (NOW). Given 09:19 09/07/2016 Zeenat Knapp R.N. Medication Administered: MORPHINE [IVP], Dose: 4 mg IVP over 2 minute(s), Site: #1 left AC. Medication Ordered: Morphine IV 4 mg (HIGH ALERT MEDICATION, NOW). Start 10:57 09/07/2016 Zeenat Knapp R.N. Medication Administered: FLAGYL [IVPB] (METRONIDAZOLE IN NACL), Dose: 500 mg IVPB over 1 hour(s), Rate: 100 mL/hr, Dispensed: 100 mL bag, Site: #1 left AC. Medication Ordered: Flagyl IV 500 mg/100mL (NOW). Start 10:57 09/07/2016 Zeenat Knapp R.N. Medication Administered: LEVAQUIN [IVPB] (LEVOFLOXACIN), Dose: 750 mg IVPB over 1 hour(s), Rate: 150 mL/hr, Dispensed: 150 mL bag, Site: #1 left AC. Medication Ordered: Levaquin IV 750 mg/150 mL (NOW).
--- NOTE | 2016-09-12 03:51 | ED DISCHARGE INSTRUCTIONS ---
Patient: MARIE CERNA General Instructions [facility] VisitID: [id number] [address] [place] [place] [address] 81y, F Registration Date/Time: 09/07/2016 colitis, acute leukocytosis, acute abdominal pain, acute gI bleed, acute. (Electronically signed by Marvel Ríos Dr. 09/12/2016 3:51)
--- NOTE | 2016-09-12 03:51 | ED MED RECONCILIATION SUMMARY ---
Patient: MARIE CERNA Medication Reconciliation Report [facility] VisitID: [id number] [address] [place] [address] 81y, F Registration Date/Time: 09/07/2016 Weight: 58.9 kg Height/Length: 61 in. BMI: 24.5 ALLERGIES: No Known Drug Allergy The patient's Home Medications are listed below: THE FOLLOWING MEDICATIONS NEED TO BE RECONCILED: AmLODIPine Besylate Oral Aspirin Low Strength Oral B 12 Levothyroxine Sodium Oral (50 mcg), 2x a day Multivitamins Oral 1 pill, daily Quinapril HCl Oral 5 mg, 2x a day Simvastatin Oral 40 mg, daily The source(s) of the original Home Medication information: Not obtained. The following Medications were given to the patient in the Emergency Department: IV NS IV Fluids bolus 0, then 1000 mL/hr, administered: 09/07/2016 8:52:00 AM Zofran [IVP] IVP 4 mg, administered: 09/07/2016 9:18:00 AM Morphine [IVP] IVP 4 mg, administered: 09/07/2016 9:19:00 AM Flagyl [IVPB] IVPB bolus 0, then 500 mg 100 mL/hr, administered: 09/07/2016 10:57:00 AM Levaquin [IVPB] IVPB bolus 0, then 750 mg 150 mL/hr, administered: 09/07/2016 10:57:00 AM The following Medications were prescribed to the patient: None.
--- NOTE | 2016-09-12 03:51 | ED DISCHARGE INSTRUCTIONS ---
Patient: MARIE CERNA General Instructions [facility] VisitID: [id number] [address] [place] [place] [address] 81y, F Registration Date/Time: 09/07/2016 colitis, acute leukocytosis, acute abdominal pain, acute gI bleed, acute. (Electronically signed by Marvel Ríos Dr. 09/12/2016 3:51)
--- NOTE | 2016-09-12 03:51 | ED MAR SUMMARY ---
..... Medication Administration Record [facility] [address] [place] [address] Patient: MARIE CERNA Visit ID: [id number] 81y, F Weight: 58.9 kg Height/Length: 61 in BMI: 24.5 ALLERGIES: No Known Drug Allergy Start 08:52 09/07/2016 Zeenat Knapp R.N. Medication Administered: IV NS (SALINE), Dose: IV Fluids over 1 hour(s), Rate: 1000 mL/hr, Dispensed: 1000 mL bag, Site: #1 left AC. Medication Ordered: IV NS : initial bolus 1000 mL (1000 mL/hr), then none - for X1 (NOW). Given 09:18 09/07/2016 Zeenat Knapp R.N. Medication Administered: ZOFRAN [IVP] (ONDANSETRON HCL), Dose: 4 mg IVP over 2 minute(s), Site: #1 left AC. Medication Ordered: Zofran IV 4 mg (NOW). Given 09:19 09/07/2016 Zeenat Knapp R.N. Medication Administered: MORPHINE [IVP], Dose: 4 mg IVP over 2 minute(s), Site: #1 left AC. Medication Ordered: Morphine IV 4 mg (HIGH ALERT MEDICATION, NOW). Start 10:57 09/07/2016 Zeenat Knapp R.N. Medication Administered: FLAGYL [IVPB] (METRONIDAZOLE IN NACL), Dose: 500 mg IVPB over 1 hour(s), Rate: 100 mL/hr, Dispensed: 100 mL bag, Site: #1 left AC. Medication Ordered: Flagyl IV 500 mg/100mL (NOW). Start 10:57 09/07/2016 Zeenat Knapp R.N. Medication Administered: LEVAQUIN [IVPB] (LEVOFLOXACIN), Dose: 750 mg IVPB over 1 hour(s), Rate: 150 mL/hr, Dispensed: 150 mL bag, Site: #1 left AC. Medication Ordered: Levaquin IV 750 mg/150 mL (NOW).
== END 2016-09-09 12:05 | disposition home or self-care (01) | DRG 392 ==
LOC: ED SRH 07:58 → TRANS SRH 10:40 → CC SRH 12:15
PROVIDERS: ADMIT Student in an Organized Health Care Education/Training Program
DX: K52.9 Noninfective gastroenteritis and colitis, unspecified (principal); N39.0 Urinary tract infection, site not specified; B96.20 Unspecified Escherichia coli [E. coli] as the cause of diseases classified elsewhere; I10 Essential (primary) hypertension; E03.9 Hypothyroidism, unspecified
CPT/HCPCS: 85241; 90001; 90004; 90065; 90074; 90100; 90148; 90155; 90469; 91004; 91672; 92132; 92720; 94001; 94060; 95059